=== PATIENT | male | born 1950 | race Hispanic/Latino ===

== ENCOUNTER 2018-04-05 15:33 | Emergency (ER) | payer MEDICARE, OTHER ==
[2018-04-05 17:17] LABS: AMPHET/METH SCREEN,URINE NEGATIVE (NEGATIVE); BARBITURATE SCREEN, URINE NEGATIVE (NEGATIVE); BENZODIAZEPINES SCREEN,URINE POSITIVE (NEGATIVE); CANNABINOID SCREEN,URINE NEGATIVE (NEGATIVE); COCAINE SCREEN,URINE NEGATIVE (NEGATIVE); OPIATE SCREEN,URINE NEGATIVE (NEGATIVE); PHENCYCLIDINE SCREEN,URINE NEGATIVE (NEGATIVE)
== END 2018-04-05 19:01 | disposition home or self-care (01) ==
LOC: EDH 15:33
DX: S46.819A Strain of other muscles, fascia and tendons at shoulder and upper arm level, unspecified arm, initial encounter (principal); G44.209 Tension-type headache, unspecified, not intractable; E11.9 Type 2 diabetes mellitus without complications; E78.5 Hyperlipidemia, unspecified; I10 Essential (primary) hypertension; Z91.041 Radiographic dye allergy status; V49.49XA Driver injured in collision with other motor vehicles in traffic accident, initial encounter; Y93.89 Activity, other specified; Y92.89 Other specified places as the place of occurrence of the external cause; Y99.8 Other external cause status
CPT/HCPCS: 36415; 70450; 71250; 72125; 80305; 99284; G0480

== ENCOUNTER → 2019-03-24 | Outpatient (CLI) | payer MEDICARE ==
[~2019-03-24] MED LIST: GADODIAMIDE 10 MMOL/20 ML VIAL IV ONE
== END | disposition home or self-care (01) ==
LOC: RAH 10:25
PROVIDERS: ATTEND Family Medicine
DX: M47.814 Spondylosis without myelopathy or radiculopathy, thoracic region (principal); M25.78 Osteophyte, vertebrae; M48.04 Spinal stenosis, thoracic region; N26.1 Atrophy of kidney (terminal)
CPT/HCPCS: 72146; A9579

== ENCOUNTER 2023-12-23 00:52 | Inpatient (IN) | payer MEDICARE ==
[~2023-12-23] VITALS: Ht 175.3 cm; Wt 102.1 kg
[2023-12-23 01:08] LABS: BASOPHILS # (AUTO) 0.05 K/uL (0.00-0.20); BASOPHILS % (AUTO) 0.2 % (0.0-5.0); EOSINOPHILS # (AUTO) 0.14 K/uL (0.00-0.70); EOSINOPHILS % (AUTO) 0.7 % (0.0-8.0); HEMATOCRIT 37.8 % (42-54); IMMATURE GRANULOCYTE ABSOLUTE 0.11 K/uL (0-1); LYMPHOCYTES # (AUTO) 5.8 K/uL (1.0-4.8); LYMPHOCYTES % (AUTO) 27.7 % (21.0-51.0); MEAN CORPUSCULAR HGB CONC 32.5 g/dL (32.0-36.0); MEAN CORPUSCULAR VOLUME 92.2 fL (79-99); MONOCYTES # (AUTO) 1.6 K/uL (0.1-1.0); MONOCYTES % (AUTO) 7.9 % (3.0-13.0); NEUTROPHILS # (AUTO) 13.2 K/uL (1.8-7.7); PLATELET COUNT (AUTO) 327 K/uL (130-400); RED CELL DISTRIBUTION WIDTH 14.6 % (11.0-15.5); WHITE BLOOD COUNT (AUTO) 20.9 K/uL (4.8-10.8)
[2023-12-23 01:15] LABS: CREATININE 1.4 mg/dL (0.5-1.3); POTASSIUM 3.4 mmol/L (3.5-5.1)
[2023-12-23 01:35] LABS: BAND NEUTROPHILS % (MANUAL) 1 % (0-2); LYMPHOCYTES % (MANUAL) 41 % (22-44); MONOCYTES % (MANUAL) 3 % (2-9); SEGMENTED NEUTROPHILS % 55 % (40-70); TOTAL CELLS COUNTED 100
[2023-12-23 01:37] LABS: MAN.DIFF COMMENT-IMPRESSION MANUAL DIFFERENTIAL
--- NOTE | 2023-12-23 01:45 | ERN ---
ED Note History of Present Illness Stated Complaint: LOWER ABDOMINAL PAIN WITH BRIGHT RED BLOOD IN STOO Chief Complaint: Abdominal Pain Time Seen by MD: 01:00 Dictation: This is a 73-year-old male who presented to the emergency room with complaints of bright red blood per rectum which started 2 hours ago. He also reports lower crampy abdominal pain associated with weakness and lightheadedness. He stated that due to pain he has nausea and feels like he would vomit. No history of any vomiting blood. He has had similar episode 3 years ago at which time Dr. Kamron gee evaluated him and what he describes likely with endoscopy and colonoscopy. Per patient's report he was told that there were no tumors. He is on chronic immunosuppressant therapy-prednisone and azathioprine for his renal transplant Temperature 97.3 pulse 79 respirations 18 blood pressure 156/77 with a pulse oximetry of 96% Chronic medical problems include diabetes mellitus, hypertension, initial renal transplant in the 1970s and repeat renal transplant 14 years after the 1st one Patient is not on any anticoagulant therapy. Past Medical History Past Medical History: Diabetes-Type II, Hypertension, Other Surgical History: Other Surgical History Other: R RENAL TRANSPLANT Family History: Negative Social History: Negative RN Note Reviewed/Agreed w/PFSH: Yes Review of System Dictation Constitutional: Negative for fever,chills, and weight loss Eyes: Negative for injury, pain,redness, and discharge ENT: Negative for injury,pain or swelling Cardiovascular: Negative for chest pain, palpitations, and edema Respiratory: Negative for shortness of breath, cough, and wheezing, Abdomen/GI: Positive for crampy lower abdominal pain, nausea, bright red blood per rectum Back: Negative for injury and pain : Negative for injury, bleeding and discharge MS/Extremity: Negative for injury and deformity Skin: Negative for rash, and discoloration Neuro: Negative for headache, weakness, numbness, tingling, and seizure Psych: Negative for suicide ideation, homicidal ideation, and hallucinations Initial Vital Sign VS Vital Signs Date Time Temp Pulse Resp B/P (MAP) Pulse Ox O2 Delivery O2 Flow Rate FiO2 12/23/23 00:53 97.3 79 18 156/77 98 Room Air* 0 21 Physical Exam Dictation General: awake, alert, NAD elderly chronically ill-appearing but very sharp Head/Face: Normocephalic, atraumatic Eyes: PERRL, EOMI, vision at baseline ENT: oral cavity clear, TMs clear, no signs of infection Neck: Trachea midline, supple, no nuchal rigidity Cardiovascular: RRR, normal S1/S2, No MRGs, no JVD Respiratory: CTAB, no respiratory distress, No rales or wheezes Abdomen: Soft, non-tender, non-distended, normal bowel sounds, no guarding or rebound. Skin: Warm, dry, normal turgor, no rash extensive warty lesions throughout the body MS/Extremity: Pulses equal, no cyanosis, neurovascular intact, FROM Neuro: COAx4, GCS 15, strength 5/5, CN 2-12 intact, normal cerebellar exam, n ormal gait, Psych: Normal behavior, mood, and affect normal Extremities-trace edema without any palpable cords, Homans sign is negative Results (Laboratory/Radiology) Laboratory/Radiology Laboratory Tests Test 12/23/23 00:56 White Blood Count 20.9 K/uL (4.8-10.8) H Red Blood Count 4.10 MIL/uL (4.50-6.20) L Hemoglobin 12.3 g/dL (14.0-18.0) L Hematocrit 37.8 % (42-54) L Mean Corpuscular Volume 92.2 fL (79-99) Mean Corpuscular Hemoglobin 30.0 pg (27.0-33.0) Mean Corpuscular Hemoglobin Concent 32.5 g/dL (32.0-36.0) Red Cell Distribution Width 14.6 % (11.0-15.5) Platelet Count 327 K/uL (130-400) Mean Platelet Volume 11.6 fL (7.5-10.5) H Immature Granulocyte % (Auto) 0.5 % (0-1) Neutrophils (%) (Auto) 63.0 % (40.0-77.0) Lymphocytes (%) (Auto) 27.7 % (21.0-51.0) Monocytes (%) (Auto) 7.9 % (3.0-13.0) Eosinophils (%) (Auto) 0.7 % (0.0-8.0) Basophils (%) (Auto) 0.2 % (0.0-5.0) Neutrophils # (Auto) 13.2 K/uL (1.8-7.7) H Lymphocytes # (Auto) 5.8 K/uL (1.0-4.8) H Monocytes # (Auto) 1.6 K/uL (0.1-1.0) H Eosinophils # (Auto) 0.14 K/uL (0.00-0.70) Basophils # (Auto) 0.05 K/uL (0.00-0.20) Absolute Immature Granulocyte (auto 0.11 K/uL (0-1) Segmented Neutrophils % 55 % (40-70) Band Neutrophils % 1 % (0-2) Lymphocytes % (Manual) 41 % (22-44) Monocytes % (Manual) 3 % (2-9) Nucleated Red Blood Cells 0.0 % (0.0-0.19) Differential Comment MANUAL DIFFERENTIAL White Cell Morphology Comment Platelet Morphology Comment See comments Red Blood Cell Morphology HYPOCHROM CELLS 1+ Sodium Level 138 mmol/L (136-145) Potassium Level 3.4 mmol/L (3.5-5.1) L Chloride Level 102 mmol/L (101-111) Carbon Dioxide Level 20 mmol/L (21-32) L Blood Urea Nitrogen 26 mg/dL (7-18) H Creatinine 1.4 mg/dL (0.5-1.3) H Glomerular Filtration Rate Calc 53 mL/min (>90) Random Glucose 209 mg/dL (70-105) H Total Calcium 8.7 mg/dL (8.5-10.1) Labs Reviewed?: Yes ED Course ED Course Orders Procedure Category Date Status Time Cbc With Differential LAB 12/23/23 In Process 00:55 Basic Metabolic Panel LAB 12/23/23 Complete 00:55 Type And Screen BBK 12/23/23 In Process 00:55 Edm Admit Bridge Order ADM 12/23/23 Transmitted 01:04 Admit Orders ADM 12/23/23 Transmitted 01:04 Pantoprazole 40mg Inj PHA 12/23/23 Complete (Protonix 40mg Inj 01:30 Manual Differential LAB 12/23/23 In Process 00:56 Morphine 2mg Syg PHA 12/23/23 Complete (Morphine 2mg Syg) 01:30 Current Medications Medications (Trade) Dose Ordered Sig/Mychal Route PRN Reason Start Time Stop Time Status Last Admin Dose Admin Morphine Sulfate (morPHINE 2MG SYG) 2 mg ONCE ONCE IVP 12/23/23 01:30 11/11/24 01:31 DC Pantoprazole Sodium (PROTonix 40MG INJ) 40 mg ONCE ONCE IVP 12/23/23 01:30 12/23/23 01:31 DC Vital Signs Date Time Temp Pulse Resp B/P (MAP) Pulse Ox O2 Delivery O2 Flow Rate FiO2 12/23/23 00:54 97.3 79 18 156/77 98 Room Air 0 12/23/23 00:53 97.3 79 18 156/77 98 Room Air* 0 21 We will perform diagnostic labs, advanced imaging and administer medications according to the patient's complaint. Once the results are available, will review and personally interpreted the labs to rule out any acute life- threatening emergency the trach require immediate intervention and treatment. I will then re-evaluate the patient after treatment and diagnostic exams have return to determine whether the patient requires any further testing, can safely be discharged home or need further admission to hospital for additional treatment and evaluation. Labs reviewed CBC showed a white count of 20.9 hemoglobin 12.3 platelets 327. BNP 7 is pending I recommended admission to the hospital for evaluation of the bright red bleeding per rectum and patient is agreeable. Medical Decision Making MDM MDM: Differential diagnosis: Diverticulitis, AVMs, diverticulosis, secondary mal ignancies due to chronic immunosuppressant therapy Rationale: Tests considered and ordered secondary to shared decision making i nclude: labs, ECG and radiology Previous outside records reviewed: Old ER visits. Risk of complication and/or morbidity or mortality of patient management: None Medications-Per medication reconciliation Need for hospitalization: Patient does meet criteria for hospitalization. Need for emergency major/minor surgery: No There are no social concerns with this patient. Prescription drug management Prescriptions will include symptomatic care Patient's prior external medical records from other ER visits were reviewed by me as indicated. Prior testing and results from previous visits were reviewed. Prior tests were taken into account with medical decision making and resource utilization, independent historian/historians were used to obtain complete medical history. I independently interpreted the test that were performed, results were reviewed by me and considered findings on radiology if ordered. Medical management and examination interpretation discussions were had by me with other qualified healthcare professionals as indicated for the patient's care. 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 I personally reviewed and interpreted all the diagnostic exams performed in the ER today. The patient will be admitted to the hospital for further treatment and evaluation. Disposition-admit to facility Condition-stable/guarded Course-uncertain at this time Pain status-decreased Assessment-exam unchanged Admission Certification- I certify that the patients status is appropriate and is based on my best clinical judgment and the patient's condition as documented in the medical records Referrals: KAMRON BAUER MD (PCP) LEE SALAZAR MD Dec 23, 2023 01:45
[2023-12-23] MEDS: PANTOPrazole 40 MG/VIAL IVP ONE (02:03)
[2023-12-23] MEDS: morPHINE 2 MG SYG IVP ONE (02:04)
--- NOTE | 2023-12-23 04:23 | HP ---
[facility] HISTORY AND PHYSICAL Date of Service: Dec 23, 2023 Time of Service: 03:58 PCP: Kamron Lin HISTORY OF PRESENT ILLNESS: This is a 73-year-old male,highly impaired hearing with past medical history of diabetes type 2, hypertension and obesity who presents to the ED for complaints of bright red blood per rectum which started 2 hours ago prior to ER arrival and patient also reports having crampy abdominal pain associated with nausea ,non bloody vomiting x 3 episodes , weakness and lightheadedness.Patient states he has bloody stool x 1 at home and x2 in the ER and no blood clots but it was bright red he said and he feels weak.Patient states this is the first time that happened to him.Patient states he had colonoscopy procedure before and was found that he had multiple polyps.Patient states his GI doctor is .Patient reports he has renal transplant twice and the firs one was done in 1969's in [place], [place] and the second was in s was done in [place] and his donor is his brother.Patient states he is taking immunosuppressive therapy such as prednisone and Azathioprine and he has been doing good so far he said.Patient denies taking any antiplatelet and blood thinners. Seen and examined patient in the ER awake alert and coherent continue to complai n of feeling weak. Patient denies fever chills, chest pain, palpitation and shortness of breath. Latest vital signs temperature 97.3, heart rate 100, blood pressure 110/68 saturation 98% on room air. Labs: WBC 20.9, hemoglobin 12.3, hematocrit 37.8, platelet count 327. Potassium 3.4, CO2 20, BUN 26, creatinine 1.4, GFR 53 glucose 209. While in the ER patient received morphine 2 mg IV and Protonix 40 mg IV. We will admit patient for further medical management. REVIEW OF SYSTEMS CONSTITUTIONAL: Positive feeling weak Denies fevers, chills, or night sweats. No unintentional weight loss reported. NEUROLOGICAL: Denies headache, amaurosis fugax, motor weakness, sensory deficit, vertigo/spinning sensation, gait abnormalities, or tremors. ENT: No hearing loss, otalgia, otorrhea, rhinitis, rhinorrhea, hoarseness, or sore throat. CARDIOVASCULAR: Denies any exertional angina, dyspnea on exertion, orthopnea, paroxysmal nocturnal dyspnea, palpitations, life-threatening arrhythmias, claudication. PULMONARY: Denies any shortness of breath, cough, phlegm/sputum, hemoptysis, pleuritic chest pain. SLEEP: Denies morning headaches, daytime somnolence or napping. Denies difficulty falling asleep, staying asleep, waking from sleep. Denies knowledge of snoring. GASTROINTESTINAL: Positive epigastric pain nausea vomiting and bloody stool Denies any type of dysphagia to either liquids or solids. Denies pyrosis, early satiety, abdominal pain, diarrhea, constipation.Denies coffee-ground emesis, hematemesis, GENITOURINARY: Denies frequency, urgency, nocturia, hematuria or incontinence (Storage/Irritative symptoms.) Low urinary stream, straining to void, urinary intermittency or hesitancy, splitting of the voiding stream, terminal dribbling. ENDOCRINOLOGIC: Denies polyuria, polydipsia, polyphagia or heat/cold intolerances. HEMATOLOGIC: Denies thrombophilia/previous clots, or coagulopathy/bleeding disorders. ONCOLOGIC: Denies personal history of malignancy. DERMATOLOGIC: Denies rashes or pruritus. PSYCHIATRIC: Denies any suicidal or homicidal ideation. Denies hallucinations. PAST MEDICAL HISTORY: [ Diabetes, hypertension and obesity] PAST SURGICAL HISTORY: [ Renal transplant x2, kidney removal, bilateral cataract surgery, bilateral knee replacement ] PAST SOCIAL HISTORY: [ Patient lives alone. Ex- is a caregiver for 6 hours per day 9am - 3pm p.m. ] FAMILY HISTORY: [ Noncontributory] Coded Allergies: codeine (Unverified Allergy, Unknown, RASH/HIVES, 12/23/23) PHYSICAL EXAM GENERAL APPEARANCE: The patient is awake, alert, and oriented, in no acute cardiopulmonary distress. NEUROLOGICAL: Cranial nerves II-XII grossly intact. Motor is 5/5 in bilateral upper and lower extremities proximal to distal. No sensory deficits. HEENT: Face is symmetric. Pupils are equal and reactive. Extraocular movements are intact. NECK: Supple. No JVD. No thyromegaly. No submental, submandibular, pre- /postauricular, occipital or supraclavicular lymphadenopathy. CHEST: Normal chest expansion. No Telemetry. LUNGS: Absence of any rales, rhonchi or any wheezing. CARDIOVASCULAR: Regular. S1 and S2 normal. No appreciable rubs, murmurs or gallops. ABDOMEN: Soft, nontender, and nondistended. There is no rebound, voluntary guarding, or rigidity. : Deferred. No New. EXTREMITIES: Non-edematous and not cyanotic. No clubbing. Good capillary refill. SKIN: No skin breakdown. Vital Sign (Last 24 Hours) 12/23/23 02:42 Temp 97.3 Pulse 100 Resp 18 B/P (MAP) 110/68 Pulse Ox 98 O2 Delivery Room Air* O2 Flow Rate 0 FiO2 21 LABS: Laboratory: Test 12/23/23 00:56 Range/Units White Blood Count 20.9 H 4.8-10.8 K/uL Red Blood Count 4.10 L 4.50-6.20 MIL/uL Hemoglobin 12.3 L 14.0-18.0 g/dL Hematocrit 37.8 L 42-54 % Mean Corpuscular Volume 92.2 79-99 fL Mean Corpuscular Hemoglobin 30.0 27.0-33.0 pg Mean Corpuscular Hemoglobin Concent 32.5 32.0-36.0 g/dL Red Cell Distribution Width 14.6 11.0-15.5 % Platelet Count 327 130-400 K/uL Mean Platelet Volume 11.6 H 7.5-10.5 fL Immature Granulocyte % (Auto) 0.5 0-1 % Neutrophils (%) (Auto) 63.0 40.0-77.0 % Lymphocytes (%) (Auto) 27.7 21.0-51.0 % Monocytes (%) (Auto) 7.9 3.0-13.0 % Eosinophils (%) (Auto) 0.7 0.0-8.0 % Basophils (%) (Auto) 0.2 0.0-5.0 % Neutrophils # (Auto) 13.2 H 1.8-7.7 K/uL Lymphocytes # (Auto) 5.8 H 1.0-4.8 K/uL Monocytes # (Auto) 1.6 H 0.1-1.0 K/uL Eosinophils # (Auto) 0.14 0.00-0.70 K/uL Basophils # (Auto) 0.05 0.00-0.20 K/uL Absolute Immature Granulocyte (auto 0.11 0-1 K/uL Segmented Neutrophils % 55 40-70 % Band Neutrophils % 1 0-2 % Lymphocytes % (Manual) 41 22-44 % Monocytes % (Manual) 3 2-9 % Nucleated Red Blood Cells 0.0 0.0-0.19 % Differential Comment MANUAL DIFFERENTIAL White Cell Morphology Comment Platelet Morphology Comment See comments Red Blood Cell Morphology HYPOCHROM CELLS 1+ Sodium Level 138 136-145 mmol/L Potassium Level 3.4 L 3.5-5.1 mmol/L Chloride Level 102 101-111 mmol/L Carbon Dioxide Level 20 L 21-32 mmol/L Blood Urea Nitrogen 26 H 7-18 mg/dL Creatinine 1.4 H 0.5-1.3 mg/dL Glomerular Filtration Rate Calc 53 >90 mL/min Random Glucose 209 H 70-105 mg/dL Total Calcium 8.7 8.5-10.1 mg/dL DIAGNOSTICS / RADIOLOGY: [ ] ASSESSMENT: Suspected GI bleed POA Acute leukocytosis ( patient on prednisone ) POA Long-term current use of immunosuppressive drug POA Uncontrolled Diabetes POA Hypertension POA Hypokalemia POA Acute kidney injury on stage III renal disease POA History of renal transplantation POA Obesity POA PLAN: We will admit patient in medical telemetry We will keep patient nothing by mouth We will start LR @ 100 ml / hr x 1 bag and re evaluate Will transfuse blood product to keep Hgb above 7 We will start on Protonix 40 mg IV bid for GI prophylaxis We will replace electrolytes as needed per protocol We will start on insulin sliding scale AC & HS with hypoglycemia protocol We will add prn medication for fever,pain, nausea & vomiting We will reconcile home meds once medlist available Will request Fecal occult blood x 1 Will do serial H&H Q6H and prn bleeding Will seek Gastroenterology consultation We will request labs in am Further orders to follow depending on above results Case discussed with attending physician and came up with above treatment and plan of care. ADVANCED CARE PLANNING 1. Which of the following were discussed? Hospice Care - No Therapeutic options - Yes Advance Directives - No Other discussions - 2. Discussed with who? Patient 3. Voluntary nature of this service was explained to the patient? Yes 4. Amount of time spent - __19 5. Reviewed by Physician? (if this service was performed by NPP) Yes Patient seen and examined by me. Agree with note by SKIVER WELT END SEE ADDITIONAL ORDERS PER CHART DISCUSSED WITH NURSING STAFF MARYAM JONESP Dec 23, 2023 04:23
[2023-12-23] MEDS ORDERED: ondanSETRON 4MG INJ IV PRN (04:30)
[2023-12-23] MEDS ORDERED: GLUCAGON 1MG KIT 1 MG ML IM PRN (04:30)
[2023-12-23] MEDS ORDERED: DEXTROSE 50%-WATER 50 ML DISP.SYRIN IV PRN (04:30)
[2023-12-23] MEDS ORDERED: MAGNESIUM 2GM PREMIX 50ML 50 ML IV PRN (04:30)
[2023-12-23] MEDS ORDERED: hydrALAZine 20MG/ML VIAL IV PRN (04:30)
[2023-12-23] MEDS ORDERED: PoTASSium chloRIDE 20MEQ/100ML 100 ML IV PRN (04:30)
[2023-12-23] MEDS: LACTATED RINGERS 1000ML 1,000 ML IV SCH (04:47)
[2023-12-23] MEDS: DiphenhydrAMINE HCL 50 MG/ML VIAL IM ONE (04:48)
[2023-12-23 06:31] LABS: BASOPHILS # (AUTO) 0.03 K/uL (0.00-0.20); BASOPHILS % (AUTO) 0.2 % (0.0-5.0); EOSINOPHILS # (AUTO) 0.04 K/uL (0.00-0.70); EOSINOPHILS % (AUTO) 0.3 % (0.0-8.0); HEMATOCRIT 33.6 % (42-54); LYMPHOCYTES # (AUTO) 2.6 K/uL (1.0-4.8); LYMPHOCYTES % (AUTO) 18.4 % (21.0-51.0); MEAN CORPUSCULAR HEMOGLOBIN 29.7 pg (27.0-33.0); MEAN CORPUSCULAR HGB CONC 31.8 g/dL (32.0-36.0); MEAN CORPUSCULAR VOLUME 93.3 fL (79-99); MONOCYTES # (AUTO) 1.1 K/uL (0.1-1.0); MONOCYTES % (AUTO) 7.6 % (3.0-13.0); NEUTROPHILS # (AUTO) 10.1 K/uL (1.8-7.7); NEUTROPHILS % (AUTO) 72.8 % (40.0-77.0); PLATELET COUNT (AUTO) 266 K/uL (130-400); RED CELL DISTRIBUTION WIDTH 14.6 % (11.0-15.5); WHITE BLOOD COUNT (AUTO) 13.9 K/uL (4.8-10.8)
[2023-12-23 06:48] LABS: ALBUMIN 2.8 g/dL (3.5-5.0); BILIRUBIN,TOTAL 0.6 mg/dL (0.2-1.0); CREATININE 1.3 mg/dL (0.5-1.3); MAGNESIUM 1.2 mg/dL (1.80-2.40); POTASSIUM 4.3 mmol/L (3.5-5.1); TOTAL PROTEIN, SERUM 5.9 g/dL (6.0-8.3)
[2023-12-23] MEDS: INSULIN humuLIN R 100 UNIT/ML 3ML SQ SCH (07:30)
[2023-12-23] MEDS ORDERED: PRED10TA23 PO (09:41)
[2023-12-23] MEDS ORDERED: ALPR-411 PO (09:41)
[2023-12-23] MEDS ORDERED: HYDR-4068 PO (09:41)
[2023-12-23] MEDS ORDERED: ZOLP5TAB8 PO (09:41)
[2023-12-23] MEDS ORDERED: CEPH500C2 PO (09:41)
[2023-12-23] MEDS ORDERED: POTA15TA11 PO (09:41)
[2023-12-23] MEDS ORDERED: DYAZIDE PO (09:41)
[2023-12-23] MEDS ORDERED: METF-527 PO (09:41)
[2023-12-23] MEDS ORDERED: MAGN250T10 PO (09:41)
[2023-12-23] MEDS ORDERED: AZAT75TA2 PO (09:41)
[2023-12-23] MEDS ORDERED: HYDR100T15 PO (09:41)
[2023-12-23] MEDS ORDERED: MIRT-93 PO (09:41)
[2023-12-23 09:50] VITALS: BP 124/71; PULSE 87; RESP 19; TEMP 98
[2023-12-23] MEDS: PANTOPrazole 40 MG/VIAL IVP SCH (10:17)
[2023-12-23 10:28] LABS: HEMATOCRIT 32.2 % (42-54)
[2023-12-23] MEDS ORDERED: ALPRAZolam 1 MG TAB PO PRN (11:00)
[2023-12-23 12:00] VITALS: BP 114/58; PULSE 91; RESP 20; TEMP 98.7; O2SAT 96
--- NOTE | 2023-12-23 13:40 | CONS ---
GASTROENTEROLOGY CONSULTATION NOTE Date of Consultation: Dec 23, 2023 Time of Consultation: 13:39 History of Present Illness: This is a 73-year-old male with past medical history of impaired hearing, type 2 diabetes, hypertension, obesity who presented due to hematochezia. He reported abdominal pain, nausea and vomiting. He does report a colonoscopy before by Dr. Perla. He does report a history of renal transplant twice. He is taking immunosuppressive therapy such as prednisone and azathioprine. Denies any anticoagulation or antiplatelet drugs. Hemoglobin was 12.3 now 10.3 with a platelet count of 266. WBC was 20 and now 13.9. LFTs unremarkable. No imaging has been done. Review of Systems: CONSTITUTIONAL: No malaise or change in sensation of wellbeing. ENMT: No rhinorrhea, otorrhea, sinus pain, ear ache. CARDIOVASCULAR: No angina, palpitations, orthopnea or paroxysmal dyspnea. RESPIRATORY: No SOB. GASTROINTESTINAL: No abdominal pain, nausea, vomiting, diarrhea, hematemesis, melena or change in the patient's habitual bowel movements consistency/number. GENITOURINARY: No dysuria, hematuria or change in bladder continence. MUSCULOSKELETAL: No new muscle pain or decrease in muscular strength. No new joint swelling, redness or tenderness. SKIN: No new rash. Past Medical History: PAST MEDICAL HISTORY: [ Diabetes, hypertension and obesity] PAST SURGICAL HISTORY: [ Renal transplant x2, kidney removal, bilateral cataract surgery, bilateral knee replacement ] PAST SOCIAL HISTORY: [ Patient lives alone. Ex- is a caregiver for 6 hours per day 9am - 3pm p.m. ] FAMILY HISTORY: [ Noncontributory] Coded Allergies: codeine (Unverified Allergy, Unknown, RASH/HIVES, 12/23/23) Coded Allergies: codeine (Unverified Allergy, Unknown, RASH/HIVES, 12/23/23) iodine (Unverified Allergy, Unknown, 12/23/23) Physical Exam: GEN: Awake, alert, oriented in person, time and place, and in no acute distress. HEENT: No sinus tenderness. Tympanic membranes were not examined. No rhinorrhea. Oral pharyngeal mucosa is pink, moist and within normal limits. Neck is supple with no cervical lymphadenopathy, thyromegaly or JVD. CHEST: Inspection, palpation and percussion of the chest were unremarkable. Lung auscultation revealed normal breath sounds bilaterally. CARDIAC: PMI is within normal limits. Heart sounds are regular. Normal S1, S2. No gallop or murmur. ABD: Soft, non-tender and not distended. No peritoneal signs on palpation. No organomegaly. Normal bowel sounds. EXT: No cyanosis or clubbing. No edema. SKIN: Intact. No rashes. JOINTS: No evidence of synovitis or acute arthritis. NEURO: Alert and oriented to name, place and person. Cranial nerve examination is unremarkable. No focal motor deficits. Normal speech. Gait is normal. Strength is normal. Vital Sign (Last 24 Hours) 12/23/23 12:00 Temp 98.8 Pulse 91 Resp 20 B/P (MAP) 114/58 Pulse Ox 96 O2 Delivery Room Air* O2 Flow Rate 0 FiO2 21 Laboratory: [ ] Laboratory: Test 12/23/23 11:05 12/23/23 10:19 12/23/23 06:13 12/23/23 00:56 Range/Units Whole Blood Glucose 129 H 70-110 MG/DL Hemoglobin 10.3 L 14.0-18.0 g/dL Hematocrit 32.2 L 42-54 % White Blood Count 13.9 #H 4.8-10.8 K/uL Red Blood Count 3.60 L 4.50-6.20 MIL/uL Mean Corpuscular Volume 93.3 79-99 fL Mean Corpuscular Hemoglobin 29.7 27.0-33.0 pg Mean Corpuscular Hemoglobin Concent 31.8 L 32.0-36.0 g/dL Red Cell Distribution Width 14.6 11.0-15.5 % Platelet Count 266 130-400 K/uL Mean Platelet Volume 11.7 H 7.5-10.5 fL Immature Granulocyte % (Auto) 0.7 0-1 % Neutrophils (%) (Auto) 72.8 40.0-77.0 % Lymphocytes (%) (Auto) 18.4 L 21.0-51.0 % Monocytes (%) (Auto) 7.6 3.0-13.0 % Eosinophils (%) (Auto) 0.3 0.0-8.0 % Basophils (%) (Auto) 0.2 0.0-5.0 % Neutrophils # (Auto) 10.1 H 1.8-7.7 K/uL Lymphocytes # (Auto) 2.6 1.0-4.8 K/uL Monocytes # (Auto) 1.1 H 0.1-1.0 K/uL Eosinophils # (Auto) 0.04 0.00-0.70 K/uL Basophils # (Auto) 0.03 0.00-0.20 K/uL Absolute Immature Granulocyte (auto 0.10 0-1 K/uL Nucleated Red Blood Cells 0.0 0.0-0.19 % Sodium Level 147 H 136-145 mmol/L Potassium Level 4.3 3.5-5.1 mmol/L Chloride Level 110 101-111 mmol/L Carbon Dioxide Level 29 21-32 mmol/L Blood Urea Nitrogen 27 H 7-18 mg/dL Creatinine 1.3 0.5-1.3 mg/dL Glomerular Filtration Rate Calc 58 >90 mL/min Random Glucose 119 H 70-105 mg/dL Total Calcium 8.5 8.5-10.1 mg/dL Magnesium Level 1.20 L 1.80-2.40 mg/dL Total Bilirubin 0.6 0.2-1.0 mg/dL Aspartate Amino Transf (AST/SGOT) 14 10-37 U/L Alanine Aminotransferase (ALT/SGPT) 14 12-78 U/L Alkaline Phosphatase 55 50-136 U/L Total Protein 5.9 L 6.0-8.3 g/dL Albumin 2.8 L 3.5-5.0 g/dL Procalcitonin < 0.05 L 0.05-0.5 ng/mL Segmented Neutrophils % 55 40-70 % Band Neutrophils % 1 0-2 % Lymphocytes % (Manual) 41 22-44 % Monocytes % (Manual) 3 2-9 % Differential Comment MANUAL DIFFERENTIAL White Cell Morphology Comment Platelet Morphology Comment See comments Red Blood Cell Morphology HYPOCHROM CELLS 1+ Current Medications Medications (Trade) Dose Ordered Sig/Mychal Route PRN Reason Start Time Stop Time Status Last Admin Dose Admin Alprazolam (XANax 1MG) 1 mg Q12H PRN PO ANXIETY/AGITATION 12/23/23 11:00 12/30/23 10:59 Cephalexin (Keflex 500 MG CAPS) 500 mg BID PO 12/23/23 21:00 12/23/23 10:32 DC Dextrose (D50w) 50 ml AD PRN IV HYPOGLYCEMIA PROTOCOL 12/23/23 04:30 01/22/24 04:29 Glucagon (Glucagon 1mg Kit) 1 mg AD PRN IM HYPOGLYCEMIA PROTOCOL 12/23/23 04:30 01/22/24 04:29 Home Med (Home Medication) (Azathioprine 50 MG) DAILY PO 12/24/23 09:00 01/23/24 08:59 Home Med (Home Medication) (Magnesium Oxide (Magnesi... DAILY PO 12/24/23 09:00 01/23/24 08:59 Hydralazine HCl (APRESOLine 20MG INJ) 10 mg Q6H PRN IV For:SBP above 160;DBP above 90 12/23/23 04:30 01/22/24 04:29 Hydralazine HCl ([id number] TAB) 100 mg BID PO 12/23/23 21:00 01/22/24 20:59 Insulin Human Regular (humuLIN R 100 UNIT/ML 3ML) INSULIN SLIDING SCAL... ACHS SQ 12/23/23 07:30 01/22/24 07:29 Lactated Ringer's 1,000 ml @ 100 mls/hr Q10H IV 12/23/23 04:30 01/22/24 04:29 12/23/23 04:47 100 MLS/HR Magnesium Sulfate 50 ml @ 0 mls/hr PROTOCOL PRN IV OTHER [SEE ORDER COMMENTS] 12/23/23 04:30 01/22/24 04:29 Mirtazapine (REMeron 15 MG TAB) 30 mg DAILY PO 12/24/23 09:00 01/23/24 08:59 Ondansetron HCl (zoFRAN 4MG INJ) 4 mg Q6H PRN IV NAUSEA/VOMITING 12/23/23 04:30 01/22/24 04:29 Pantoprazole Sodium (PROTonix 40MG INJ) 40 mg BID IVP 12/23/23 09:00 01/22/24 08:59 12/23/23 10:17 40 MG Potassium Chloride 100 ml @ 50 mls/hr AD PRN IV POTASSIUM PROTOCOL 12/23/23 04:30 01/22/24 04:29 Prednisone (deltaSONE/ ORASONE 10MG) 10 mg TID PO 12/23/23 14:00 01/22/24 13:59 Diagnostics / Radiology: [COPY/PASTE HERE IF NO REPORTS PLEASE DELETE SECTION] Assessment: Abdominal pain Hematochezia DM HTN Plan: CT revealing signs of acute diverticulitis, which is likely the cause of his hematochezia Plan for colonoscopy in 6 to 8 weeks outpatient Start antibiotic therapy [employer] Dec 23, 2023 13:40
[2023-12-23] MEDS: predniSONE 10 MG TABLET PO SCH (14:19)
[2023-12-23 16:00] VITALS: BP 137/63; PULSE 67; RESP 20; TEMP 98.3
--- NOTE | 2023-12-23 16:39 | PN ---
[facility] PROGRESS NOTE Date of Service: Dec 23, 2023 Time of Service: 10:30 SUBJECTIVE: This is a 73-year-old male,highly impaired hearing with past medical history of diabetes type 2, hypertension and obesity who presents to the ED for complaints of bright red blood per rectum which started 2 hours ago prior to ER arrival and patient also reports having crampy abdominal pain associated with nausea ,non bloody vomiting x 3 episodes , weakness and lightheadedness.Patient states he has bloody stool x 1 at home and x2 in the ER and no blood clots but it was bright red he said and he feels weak.Patient states this is the first time that happened to him.Patient states he had colonoscopy procedure before and was found that he had multiple polyps.Patient states his GI doctor is .Patient reports he has renal transplant twice and the firs one was done in 1969's in [place], [place] and the second was in s was done in [place] and his donor is his brother.Patient states he is taking immunosuppressive therapy such as prednisone and Azathioprine and he has been doing good so far he said.Patient denies taking any antiplatelet and blood thinners. Seen and examined patient in the ER awake alert and coherent continue to complain of feeling weak. Patient denies fever chills, chest pain, palpitation and shortness of breath. Latest vital signs temperature 97.3, heart rate 100, blood pressure 110/68 saturation 98% on room air. Labs: WBC 20.9, hemoglobin 12.3, hematocrit 37.8, platelet count 327. Potassium 3.4, CO2 20, BUN 26, creatinine 1.4, GFR 53 glucose 209. While in the ER patient received morphine 2 mg IV and Protonix 40 mg IV. We will admit patient for further medical management. 12/23/2023: Patient seen and assessed at bedside. He is saturating well on room air and continues to be hemodynamically stable. Patient states he still has some dull abdominal pain but is otherwise comfortable and feels like he has regained some of his strength. He complains of not being able to rest, started on Restoril 7.5 mg to help sleep at night. We are waiting on BM to collect FOBT. GI has been consulted and plan is to do a colonoscopy in the morning. Patient continued on clear liquid diet and restarted on home meds. Nephro consulted to follow up on history of renal transplant x2. Labs significant for hemoglobin down to 10.7 from 12.3 yesterday. Hematocrit down to 33.6 from 37.8 yesterday. We will continue to repeat Q6hrs. WBC improved to 13.9 from 20.9 yesterday. BUN is at 27, Cr at 1.3. Sodium increased from 138 to 147. Patient mentioned history of anal fistula a few years ago but did not have any blood in stool sin ce then. We will continue to monitor patient and follow GI recommendations. REVIEW OF SYSTEMS CONSTITUTIONAL: Positive feeling weak Denies fevers, chills, or night sweats. No unintentional weight loss reported. NEUROLOGICAL: Denies headache, amaurosis fugax, motor weakness, sensory deficit, vertigo/spinning sensation, gait abnormalities, or tremors. ENT: No hearing loss, otalgia, otorrhea, rhinitis, rhinorrhea, hoarseness, or sore throat. CARDIOVASCULAR: Denies any exertional angina, dyspnea on exertion, orthopnea, paroxysmal nocturnal dyspnea, palpitations, life-threatening arrhythmias, claudication. PULMONARY: Denies any shortness of breath, cough, phlegm/sputum, hemoptysis, pleuritic chest pain. SLEEP: Denies morning headaches, daytime somnolence or napping. Denies difficulty falling asleep, staying asleep, waking from sleep. Denies knowledge of snoring. GASTROINTESTINAL: Positive epigastric pain nausea vomiting and bloody stool Denies any type of dysphagia to either liquids or solids. Denies pyrosis, early satiety, abdominal pain, diarrhea, constipation.Denies coffee-ground emesis, hematemesis, GENITOURINARY: Denies frequency, urgency, nocturia, hematuria or incontinence (Storage/Irritative symptoms.) Low urinary stream, straining to void, urinary intermittency or hesitancy, splitting of the voiding stream, terminal dribbling. ENDOCRINOLOGIC: Denies polyuria, polydipsia, polyphagia or heat/cold intolerances. HEMATOLOGIC: Denies thrombophilia/previous clots, or coagulopathy/bleeding disorders. ONCOLOGIC: Denies personal history of malignancy. DERMATOLOGIC: Denies rashes or pruritus. PSYCHIATRIC: Denies any suicidal or homicidal ideation. Denies hallucinations. PHYSICAL EXAM GENERAL APPEARANCE: The patient is awake, alert, and oriented, in no acute cardiopulmonary distress. NEUROLOGICAL: Cranial nerves II-XII grossly intact. Motor is 5/5 in bilateral upper and lower extremities proximal to distal. No sensory deficits. HEENT: Face is symmetric. Pupils are equal and reactive. Extraocular movements are intact. NECK: Supple. No JVD. No thyromegaly. No submental, submandibular, pre- /postauricular, occipital or supraclavicular lymphadenopathy. CHEST: Normal chest expansion. No Telemetry. LUNGS: Absence of any rales, rhonchi or any wheezing. CARDIOVASCULAR: Regular. S1 and S2 normal. No appreciable rubs, murmurs or gallops. ABDOMEN: Soft, nontender, and nondistended. There is no rebound, voluntary guarding, or rigidity. : Deferred. No New. EXTREMITIES: Non-edematous and not cyanotic. No clubbing. Good capillary refill. SKIN: No skin breakdown. Vital Signs (last 8hr) Date Time Temp Pulse Resp B/P (MAP) Pulse Ox O2 Delivery O2 Flow Rate FiO2 12/23/23 12:00 96 Room Air* 0 21 12/23/23 12:00 98.8 91 20 114/58 96 Room Air 0.0 12/23/23 09:50 98.1 87 19 124/71 97 Room Air 0.0 LABS: Laboratory: Test 12/23/23 16:05 12/23/23 10:19 12/23/23 06:13 12/23/23 00:56 Range/Units Whole Blood Glucose 131 H 70-110 MG/DL Hemoglobin 10.3 L 14.0-18.0 g/dL Hematocrit 32.2 L 42-54 % White Blood Count 13.9 #H 4.8-10.8 K/uL Red Blood Count 3.60 L 4.50-6.20 MIL/uL Mean Corpuscular Volume 93.3 79-99 fL Mean Corpuscular Hemoglobin 29.7 27.0-33.0 pg Mean Corpuscular Hemoglobin Concent 31.8 L 32.0-36.0 g/dL Red Cell Distribution Width 14.6 11.0-15.5 % Platelet Count 266 130-400 K/uL Mean Platelet Volume 11.7 H 7.5-10.5 fL Immature Granulocyte % (Auto) 0.7 0-1 % Neutrophils (%) (Auto) 72.8 40.0-77.0 % Lymphocytes (%) (Auto) 18.4 L 21.0-51.0 % Monocytes (%) (Auto) 7.6 3.0-13.0 % Eosinophils (%) (Auto) 0.3 0.0-8.0 % Basophils (%) (Auto) 0.2 0.0-5.0 % Neutrophils # (Auto) 10.1 H 1.8-7.7 K/uL Lymphocytes # (Auto) 2.6 1.0-4.8 K/uL Monocytes # (Auto) 1.1 H 0.1-1.0 K/uL Eosinophils # (Auto) 0.04 0.00-0.70 K/uL Basophils # (Auto) 0.03 0.00-0.20 K/uL Absolute Immature Granulocyte (auto 0.10 0-1 K/uL Nucleated Red Blood Cells 0.0 0.0-0.19 % Sodium Level 147 H 136-145 mmol/L Potassium Level 4.3 3.5-5.1 mmol/L Chloride Level 110 101-111 mmol/L Carbon Dioxide Level 29 21-32 mmol/L Blood Urea Nitrogen 27 H 7-18 mg/dL Creatinine 1.3 0.5-1.3 mg/dL Glomerular Filtration Rate Calc 58 >90 mL/min Random Glucose 119 H 70-105 mg/dL Total Calcium 8.5 8.5-10.1 mg/dL Magnesium Level 1.20 L 1.80-2.40 mg/dL Total Bilirubin 0.6 0.2-1.0 mg/dL Aspartate Amino Transf (AST/SGOT) 14 10-37 U/L Alanine Aminotransferase (ALT/SGPT) 14 12-78 U/L Alkaline Phosphatase 55 50-136 U/L Total Protein 5.9 L 6.0-8.3 g/dL Albumin 2.8 L 3.5-5.0 g/dL Procalcitonin < 0.05 L 0.05-0.5 ng/mL Segmented Neutrophils % 55 40-70 % Band Neutrophils % 1 0-2 % Lymphocytes % (Manual) 41 22-44 % Monocytes % (Manual) 3 2-9 % Differential Comment MANUAL DIFFERENTIAL White Cell Morphology Comment Platelet Morphology Comment See comments Red Blood Cell Morphology HYPOCHROM CELLS 1+ Current Medications Medications (Trade) Dose Ordered Sig/Mychal Route PRN Reason Start Time Stop Time Status Last Admin Dose Admin Alprazolam (XANax 1MG) 1 mg Q12H PRN PO ANXIETY/AGITATION 12/23/23 11:00 12/30/23 10:59 Cephalexin (Keflex 500 MG CAPS) 500 mg BID PO 12/23/23 21:00 12/23/23 10:32 DC Dextrose (D50w) 50 ml AD PRN IV HYPOGLYCEMIA PROTOCOL 12/23/23 04:30 01/22/24 04:29 Glucagon (Glucagon 1mg Kit) 1 mg AD PRN IM HYPOGLYCEMIA PROTOCOL 12/23/23 04:30 01/22/24 04:29 Home Med (Home Medication) (Azathioprine 50 MG) DAILY PO 12/24/23 09:00 01/23/24 08:59 Home Med (Home Medication) (Magnesium Oxide (Magnesi... DAILY PO 12/24/23 09:00 01/23/24 08:59 Hydralazine HCl (APRESOLine 20MG INJ) 10 mg Q6H PRN IV For:SBP above 160;DBP above 90 12/23/23 04:30 01/22/24 04:29 Hydralazine HCl ([id number] TAB) 100 mg BID PO 12/23/23 21:00 01/22/24 20:59 Insulin Human Regular (humuLIN R 100 UNIT/ML 3ML) INSULIN SLIDING SCAL... ACHS SQ 12/23/23 07:30 01/22/24 07:29 Lactated Ringer's 1,000 ml @ 100 mls/hr Q10H IV 12/23/23 04:30 01/22/24 04:29 12/23/23 04:47 100 MLS/HR Magnesium Sulfate 50 ml @ 0 mls/hr PROTOCOL PRN IV OTHER [SEE ORDER COMMENTS] 12/23/23 04:30 01/22/24 04:29 Mirtazapine (REMeron 15 MG TAB) 30 mg DAILY PO 12/24/23 09:00 01/23/24 08:59 Ondansetron HCl (zoFRAN 4MG INJ) 4 mg Q6H PRN IV NAUSEA/VOMITING 12/23/23 04:30 01/22/24 04:29 Pantoprazole Sodium (PROTonix 40MG INJ) 40 mg BID IVP 12/23/23 09:00 01/22/24 08:59 12/23/23 10:17 40 MG Potassium Chloride 100 ml @ 50 mls/hr AD PRN IV POTASSIUM PROTOCOL 12/23/23 04:30 01/22/24 04:29 Prednisone (deltaSONE/ ORASONE 10MG) 10 mg TID PO 12/23/23 14:00 01/22/24 13:59 12/23/23 14:19 10 MG Temazepam (restORIL 7.5 MG CAP) 7.5 mg HS PO 12/23/23 21:00 01/22/24 20:59 DIAGNOSTICS / RADIOLOGY: [ ] ASSESSMENT: Suspected GI bleed POA Acute leukocytosis ( patient on prednisone ) POA Long-term current use of immunosuppressive drug POA Uncontrolled Diabetes POA Hypertension POA Hypokalemia POA Acute kidney injury on stage III renal disease POA History of renal transplantation POA Obesity POA PLAN: We will admit patient in medical telemetry We will keep patient on clear liquid diet We will start LR @ 100 ml / hr x 1 bag and re evaluate Will transfuse blood product to keep Hgb above 7 We will start on Protonix 40 mg IV bid for GI prophylaxis We will replace electrolytes as needed per protocol We will start on insulin sliding scale AC & HS with hypoglycemia protocol We will add prn medication for fever,pain, nausea & vomiting Home meds reconciled and continued Will request Fecal occult blood x 1 Will do serial H&H Q6H and prn bleeding Will contineu to follow Gastroenterology recommendations We will request labs in am We will follow up on colonoscopy in am Further orders to follow depending on above results Case discussed with attending physician and came up with above treatment and plan of care. ATTESTATION BY PHYSICIAN I have seen and examined the patient. I reviewed the documentation, medical decision making, and treatment plan as noted by the resident provider above. I agree with the findings and plan of care. Jose Martin Coburn MD, NEHA MD Dec 23, 2023 16:39
--- NOTE | 2023-12-23 16:53 | HMCIMG ---
CT ABDOMEN/PELVIS W/O CONTRAST REASON: ABD PAIN COMPARISON: None. FINDINGS: Lung bases are clear. There are no focal liver lesions. Kidneys are atrophic. There is a transplant kidney in the left lower quadrant. There is a 5 mm stone in the lower pole calyx, nonobstructing. There is no mass or hydronephrosis.. Spleen and pancreas appear unremarkable. The gallbladder appears normal as well. There is mild sigmoid diverticulosis. There is inflammation near the junction of the descending colon and sigmoid consistent with early or mild diverticulitis. There is no evidence of abscess or perforation. There is no obstruction. Colon appears otherwise normal. Small bowel loops appear normal as well. There is no evidence of free fluid or intraperitoneal air. There are no focal fluid collections. Aorta and retroperitoneum appear normal as do pelvic soft tissue structures. The anterior abdominal wall is intact. Osseous structures appear unremarkable. IMPRESSION: 1. Mild sigmoid diverticulosis, there are findings consistent with early or mild diverticulitis at the junction of the descending and sigmoid colon, no evidence of abscess or perforation. 2. Atrophic kidneys, there is a transplant kidney left lower quadrant in close proximity to the diverticular inflammation, there is a 5 mm nonobstructing stone in the lower pole calyx. 3. Otherwise unremarkable noncontrast CT abdomen and pelvis. CT was performed with one or more following dose reduction techniques: automated exposure control, adjustment of the mA and kv according to patient's size, or use of a iterative reconstruction technique.
[2023-12-23 17:03] LABS: HEMATOCRIT 31.1 % (42-54)
[2023-12-23 19:30] VITALS: BP 123/57; PULSE 81; RESP 17
[2023-12-23 20:00] VITALS: BP 123/60; PULSE 79; RESP 17; TEMP 100.8; O2SAT 94
[2023-12-23] MEDS: ZOSYN 3.375GM +NS 50ML IV SCH (20:08)
[2023-12-23] MEDS ORDERED: cePHALexin 500 MG CAPSULE PO SCH (21:00)
[2023-12-23] MEDS: hydrALAZine 25MG TABLET PO SCH (21:00)
[2023-12-23 22:53] LABS: HEMATOCRIT 28.9 % (42-54)
[2023-12-24 01:59] VITALS: BP 124/78; PULSE 73; RESP 18; TEMP 98.3
[2023-12-24 05:05] VITALS: BP 122/69; PULSE 85; RESP 17; TEMP 98
[2023-12-24 08:00] VITALS: BP 119/56; PULSE 75; RESP 20; TEMP 98
[2023-12-24 08:51] VITALS: O2SAT 93
[2023-12-24] MEDS: mirtAZAPine 15 MG TABLET PO SCH (09:00)
[2023-12-24] MEDS: AZATHIOPRINE 50 MG PO SCH (09:04)
[2023-12-24] MEDS: MAGNESIUM OXIDE 250 MG PO SCH (09:05)
--- NOTE | 2023-12-24 09:44 | CONS ---
REASON FOR CONSULTATION: Renal failure. REFERRING PHYSICIAN: Dr. Coburn. HISTORY OF PRESENT ILLNESS: A 73-year-old male who has diabetes mellitus and hypertension. The patient presented to the hospital and found to have hematochezia. The patient was having bright red blood per rectum. The patient has had colonoscopy in the past. The patient was seen by GI service and workup is ongoing. Laboratory values revealed an elevated BUN and creatinine and the patient is being seen in consultation for all of the above. PAST MEDICAL HISTORY: Diabetes mellitus, hypertension, obesity, history of renal transplant. The patient noted to have underlying renal dysfunction. The patient is being seen in consultation for all the above. PAST MEDICAL HISTORY: Diabetes mellitus and hypertension. PAST SURGICAL HISTORY: Renal transplant, knee surgery. SOCIAL HISTORY: She lives independently. There is no active tobacco use. FAMILY HISTORY: There is no renal disease in the family. ALLERGIES: SHE HAS GOT AN ALLERGY TO IODINE. MEDICATIONS: All noted. REVIEW OF SYSTEMS: GENERAL: The patient is feeling weak and tired. HEENT: No change in vision. No change in hearing. CARDIOVASCULAR: There is no current chest pain or palpitations. PULMONARY: There is no shortness of breath. GASTROINTESTINAL: As described above. MUSCULOSKELETAL: Complains of weakness. NEUROLOGIC: No seizures or focal deficits. PSYCHIATRIC: No history of hallucinations or psychosis. ENDOCRINE: Diabetes mellitus. No history of thyroid disease. HEME: History of anemia. PHYSICAL EXAMINATION: VITAL SIGNS: Blood pressure 119/56, pulse in the 70s. GENERAL: He is a chronically ill male, elderly, lying in bed on the medical floor. HEENT: Head is atraumatic. Pupils equal, roving to light. Oropharynx is without exudate. Nares clear. NECK: There is no JVP. There is no thyromegaly, no mass. CARDIOVASCULAR: Regular. There is no S3, S4 gallop. LUNGS: Coarse with equal thoracic movement. ABDOMEN: Soft, nondistended, nontender. EXTREMITIES: Reveal no clubbing, no cyanosis. NEUROLOGICAL: He is awake. He is alert. He is oriented. SKIN: Reveals no rash or nodules. BACK: There is no CVA tenderness, there are no back deformities. LABORATORY DATA: Sodium 147, potassium 4.3, BUN 27, creatinine 1.3. Hemoglobin 9.2, hematocrit 28. IMPRESSION: 1. Renal dysfunction. 2. History of renal transplant. 3. Gastrointestinal bleeding. 4. Electrolyte abnormalities. 5. Hypertension. PLAN: The patient is a 73-year-old male who presented with hematochezia. The patient was seen by GI service and felt to continue with conservative management. The patient does have underlying hypernatremia. We will discontinue the IV fluids as the patient is now taking an adequate diet. The patient's creatinine is quite stable. He remains on all of his immunosuppressive medications and we will follow the patient closely. We will obtain iron levels in the a.m. for completeness. Once the patient is discharged, he can follow up in the [facility]al [facility]. TID: [id number] RECEIPT: [id number]
[2023-12-24 10:11] LABS: BASOPHILS # (AUTO) 0.02 K/uL (0.00-0.20); BASOPHILS % (AUTO) 0.2 % (0.0-5.0); EOSINOPHILS # (AUTO) 0.13 K/uL (0.00-0.70); EOSINOPHILS % (AUTO) 1.2 % (0.0-8.0); HEMATOCRIT 28.8 % (42-54); IMMATURE GRANULOCYTE ABSOLUTE 0.06 K/uL (0-1); LYMPHOCYTES # (AUTO) 2.5 K/uL (1.0-4.8); LYMPHOCYTES % (AUTO) 22.7 % (21.0-51.0); MEAN CORPUSCULAR HEMOGLOBIN 30.9 pg (27.0-33.0); MEAN CORPUSCULAR VOLUME 93.8 fL (79-99); MONOCYTES % (AUTO) 8.6 % (3.0-13.0); NEUTROPHILS # (AUTO) 7.4 K/uL (1.8-7.7); NEUTROPHILS % (AUTO) 66.8 % (40.0-77.0); PLATELET COUNT (AUTO) 211 K/uL (130-400); RED BLOOD CELL COUNT(AUTO) 3.07 MIL/uL (4.50-6.20); RED CELL DISTRIBUTION WIDTH 14.6 % (11.0-15.5)
[2023-12-24 10:26] LABS: ALBUMIN 2.7 g/dL (3.5-5.0); BILIRUBIN,TOTAL 0.7 mg/dL (0.2-1.0); CREATININE 1.4 mg/dL (0.5-1.3); POTASSIUM 3.3 mmol/L (3.5-5.1); TOTAL PROTEIN, SERUM 5.7 g/dL (6.0-8.3)
--- NOTE | 2023-12-24 11:46 | DS ---
Discharge Summary Hospital Course Summary: This is a 73-year-old male,highly impaired hearing with past medical history of diabetes type 2, hypertension and obesity who presents to the ED for complaints of bright red blood per rectum which started 2 hours ago prior to ER arrival and patient also reports having crampy abdominal pain associated with nausea ,non bloody vomiting x 3 episodes , weakness and lightheadedness.Patient states he has bloody stool x 1 at home and x2 in the ER and no blood clots but it was bright red he said and he feels weak.Patient states this is the first time that happened to him.Patient states he had colonoscopy procedure before and was found that he had multiple polyps. 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 Patient states he is taking immunosuppressive therapy such as prednisone and Azathioprine and he has been doing good so far he said. Patient denies taking any antiplatelet and blood thinners. Seen and examined patient in the ER awake alert and coherent continue to co mplain of feeling weak. Patient denies fever chills, chest pain, palpitation and shortness of breath. Latest vital signs temperature 97.3, heart rate 100, blood pressure 110/68 saturation 98% on room air. Labs: WBC 20.9, hemoglobin 12.3, hematocrit 37.8, platelet count 327. Potassium 3.4, CO2 20, BUN 26, creatinine 1.4, GFR 53 glucose 209. While in the ER patient received morphine 2 mg IV and Protonix 40 mg IV. Patient admitted for further medical management. 12/23/2023: Patient seen and assessed at bedside. He is saturating well on room air and continues to be hemodynamically stable. Patient states he still has some dull abdominal pain but is otherwise comfortable and feels like he has regained some of his strength. He complains of not being able to rest, started on Restoril 7.5 mg to help sleep at night. Labs significant for hemoglobinemia, elevated Hematocrit, and leukocytosis. BUN is at 27, Cr at 1.3. Sodium increased from 138 to 147. Patient mentioned history of anal fistula a few years ago but did not have any blood in stool since then. We will continue to monitor patient and follow GI recommendations. 12/24/2023: CT abdomen/pelvis demonstrates mild sigmoid diverticulosis, findings consistent with early or mild diverticulitis at the junction of the descending and sigmoid colon with no evidence of abscess or perforation. Atrophic kidneys and 5 mm nonobstructing stone in the lower pole calyx. Patient started on Zosyn per GI, we will discharge on Augmentin. Patient advised to follow up with gastroenterology in 6-8 weeks for a colonoscopy. Also advised to follow up with nephrology outpatient. Hypnotherapist(s): Gastroenterology, nephrology. Procedure(s): PATIENT: TIMO CHANEY MR#: [id number] : 1950 SEX: M AGE: 73 LOCATION: 2CV ORDER 14 STATUS: ADM IN REPORT#: [id number] SERVICE 12 REASON: ABD PAIN ORDERING PHYSICIAN: ORLANDO CALVO PROCEDURE: ABD PEL WO - CT ABDOMEN/PELVIS W/O CONTRAST CT ABDOMEN/PELVIS W/O CONTRAST REASON: ABD PAIN COMPARISON: None. FINDINGS: Lung bases are clear. There are no focal liver lesions. Kidneys are atrophic. There is a transplant kidney in the left lower quadrant. There is a 5 mm stone in the lower pole calyx, nonobstructing. There is no mass or hydronephrosis.. Spleen and pancreas appear unremarkable. The gallbladder appears normal as well. There is mild sigmoid diverticulosis. There is inflammation near the junction of the descending colon and sigmoid consistent with early or mild diverticulitis. There is no evidence of abscess or perforation. There is no obstruction. Colon appears otherwise normal. Small bowel loops appear normal as well. There is no evidence of free fluid or intraperitoneal air. There are no focal fluid collections. Aorta and retroperitoneum appear normal as do pelvic soft tissue structures. The anterior abdominal wall is intact. Osseous structures appear unremarkable. IMPRESSION: 1. Mild sigmoid diverticulosis, there are findings consistent with early or mild diverticulitis at the junction of the descending and sigmoid colon, no evidence of abscess or perforation. 2. Atrophic kidneys, there is a transplant kidney left lower quadrant in close proximity to the diverticular inflammation, there is a 5 mm nonobstructing stone in the lower pole calyx. 3. Otherwise unremarkable noncontrast CT abdomen and pelvis. CT was performed with one or more following dose reduction techniques: automated exposure control, adjustment of the mA and kv according to patient's size, or use of a iterative reconstruction technique. DICTATED BY: MED SCHAFER MD DATE: 12/23/231647 ELECTRONICALLY SIGNED BY: MED SCHAFER MD DATE: 12/23/231652 Assessment/Plan: ASSESSMENT: Mild sigmoid diverticulosis, early or mild diverticulitis per CT abdomen/pelvis 12/23/23 Suspected GI bleed POA Acute leukocytosis ( patient on prednisone ) POA Long-term current use of immunosuppressive drug POA Uncontrolled Diabetes POA Hypertension POA Hypokalemia POA Acute kidney injury on stage III renal disease POA History of renal transplantation POA Obesity POA Discharge Instructions: Follow up with PCP in 3-5 days. Follow up with gastroenterology in 6-8 weeks for colonoscopy. Follow up with nephrology at [facility] as outpatient. Home Medications: Reported Medications Mirtazapine (Mirtazapine) 30 Mg Tablet, 30 MG PO DAILY, TAB 12/23/23 Azathioprine (Azathioprine) 75 Mg Tablet, 50 MG PO DAILY, TAB 12/23/23 Zolpidem Tartrate (Zolpidem Tartrate) 5 Mg Tablet, 10 MG PO HS, TAB 12/23/23 Triamterene/Hydrochlorothiazid (Triamterene-Hctz 37.5-25 mg Cp) 37.5 Mg-25 Mg Capsule, 1 CAP PO DAILY for 30 Days, #30 CAP 0 Refills 12/23/23 Prednisone (Prednisone) 10 Mg Tab.ds.pk, 10 MG PO TID 12/23/23 Cephalexin (Cephalexin) 500 Mg Capsule, 1 CAP PO BID for 10 Days, #20 CAP 0 Refills 12/23/23 Magnesium Oxide (Magnesium) 250 Mg Tablet, 1 TAB PO DAILY for 30 Days, #30 TAB 0 Refills 12/23/23 Alprazolam (Alprazolam) 1 Mg Tab.rapdis, 1 TAB PO [id number] PRN for AGITATION for 30 Days, #60 TAB 0 Refills 12/23/23 Potassium Citrate (Potassium Citrate ER) 15 Meq (1620 Mg) Tablet.er, 10 MEQ PO TID, TAB 12/23/23 Hydralazine HCl (Hydralazine HCl) 100 Mg Tablet, 100 MG PO BID, TAB 12/23/23 Metformin HCl (Metformin HCl ER) 1,000 Mg Tab.er.24, 1 TAB PO DAILY for 30 Days, #30 TAB 0 Refills 12/23/23 Hydrocodone/Acetaminophen (Hydrocodon-Acetaminophn 10-325) 10 Mg-325 Mg Tablet, 1 TAB PO TIDP PRN for pain for 30 Days, #90 TAB 0 Refills 12/23/23 New Medications: Amoxicillin/Potassium Clav (Augmentin Xr 1,000-62.5 Tab) 1,000 Mg-62.5 Mg Tab.er.12h 1 TAB PO BID for 7 Days, #14 TAB 0 Refills with food Continued Medications: Alprazolam (Alprazolam) 1 Mg Tab.rapdis 1 TAB PO [id number] PRN for AGITATION for 30 Days, #60 TAB 0 Refills Azathioprine (Azathioprine) 75 Mg Tablet 50 MG PO DAILY, TAB Hydralazine HCl (Hydralazine HCl) 100 Mg Tablet 100 MG PO BID, TAB Hydrocodone/Acetaminophen (Hydrocodon-Acetaminophn 10-325) 10 Mg-325 Mg Tablet 1 TAB PO TIDP PRN for pain for 30 Days, #90 TAB 0 Refills Magnesium Oxide (Magnesium) 250 Mg Tablet 1 TAB PO DAILY for 30 Days, #30 TAB 0 Refills Metformin HCl (Metformin HCl ER) 1,000 Mg Tab.er.24 1 TAB PO DAILY for 30 Days, #30 TAB 0 Refills Mirtazapine (Mirtazapine) 30 Mg Tablet 30 MG PO DAILY, TAB Potassium Citrate (Potassium Citrate ER) 15 Meq (1620 Mg) Tablet.er 10 MEQ PO TID, TAB Prednisone (Prednisone) 10 Mg Tab.ds.pk 10 MG PO TID Triamterene/Hydrochlorothiazid (Triamterene-Hctz 37.5-25 mg Cp) 37.5 Mg-25 Mg Capsule 1 CAP PO DAILY for 30 Days, #30 CAP 0 Refills Zolpidem Tartrate (Zolpidem Tartrate) 5 Mg Tablet 10 MG PO HS, TAB Discontinued Medications: Cephalexin (Cephalexin) 500 Mg Capsule 1 CAP PO BID for 10 Days, #20 CAP 0 Refills Time spent arranging discharge: 1-30 minutes ATTESTATION BY PHYSICIAN I have seen and examined the patient. I reviewed the documentation, medical decision making, and treatment plan as noted by the resident provider above. I agree with the findings and plan of care. Jose Martin Coburn MD, NEHA MD Dec 24, 2023 11:46
[2023-12-24 12:00] VITALS: BP 125/59; PULSE 73; RESP 18; TEMP 97.7
[2023-12-24 16:00] VITALS: BP 110/67; PULSE 75; RESP 18; TEMP 97.6
[2023-12-24] MEDS ORDERED: AMOX-427 PO (16:43)
--- NOTE | 2023-12-24 17:11 | PN ---
GASTROENTEROLOGY PROGRESS NOTE Date of Consultation: Dec 24, 2023 Time of Consultation: 17:11 Events / Notes: [ ] Review of Systems: CONSTITUTIONAL: No malaise or change in sensation of wellbeing. ENMT: No rhinorrhea, otorrhea, sinus pain, ear ache. CARDIOVASCULAR: No angina, palpitations, orthopnea or paroxysmal dyspnea. RESPIRATORY: No SOB. GASTROINTESTINAL: No abdominal pain, nausea, vomiting, diarrhea, hematemesis, melena or change in the patient's habitual bowel movements consistency/number. GENITOURINARY: No dysuria, hematuria or change in bladder continence. MUSCULOSKELETAL: No new muscle pain or decrease in muscular strength. No new joint swelling, redness or tenderness. SKIN: No new rash. Physical Exam: GEN: Awake, alert, oriented in person, time and place, and in no acute distress. HEENT: No sinus tenderness. Tympanic membranes were not examined. No rhinorrhea. Oral pharyngeal mucosa is pink, moist and within normal limits. Neck is supple with no cervical lymphadenopathy, thyromegaly or JVD. CHEST: Inspection, palpation and percussion of the chest were unremarkable. Lung auscultation revealed normal breath sounds bilaterally. CARDIAC: PMI is within normal limits. Heart sounds are regular. Normal S1, S2. No gallop or murmur. ABD: Soft, non-tender and not distended. No peritoneal signs on palpation. No organomegaly. Normal bowel sounds. EXT: No cyanosis or clubbing. No edema. SKIN: Intact. No rashes. JOINTS: No evidence of synovitis or acute arthritis. NEURO: Alert and oriented to name, place and person. Cranial nerve examination is unremarkable. No focal motor deficits. Normal speech. Gait is normal. Strength is normal. Vital Signs (last 8hr) Date Time Temp Pulse Resp B/P (MAP) Pulse Ox O2 Delivery O2 Flow Rate FiO2 12/24/23 16:00 97.5 75 18 110/67 94 Room Air 21 12/24/23 12:00 97.7 73 18 125/59 96 Room Air 21 Laboratory: [ ] Laboratory: Test 12/24/23 16:21 12/24/23 10:04 12/23/23 06:13 12/23/23 00:56 Range/Units Whole Blood Glucose 126 H 70-110 MG/DL White Blood Count 11.0 H 4.8-10.8 K/uL Red Blood Count 3.07 L 4.50-6.20 MIL/uL Hemoglobin 9.5 L 14.0-18.0 g/dL Hematocrit 28.8 L 42-54 % Mean Corpuscular Volume 93.8 79-99 fL Mean Corpuscular Hemoglobin 30.9 27.0-33.0 pg Mean Corpuscular Hemoglobin Concent 33.0 32.0-36.0 g/dL Red Cell Distribution Width 14.6 11.0-15.5 % Platelet Count 211 130-400 K/uL Mean Platelet Volume 11.1 H 7.5-10.5 fL Immature Granulocyte % (Auto) 0.5 0-1 % Neutrophils (%) (Auto) 66.8 40.0-77.0 % Lymphocytes (%) (Auto) 22.7 21.0-51.0 % Monocytes (%) (Auto) 8.6 3.0-13.0 % Eosinophils (%) (Auto) 1.2 0.0-8.0 % Basophils (%) (Auto) 0.2 0.0-5.0 % Neutrophils # (Auto) 7.4 1.8-7.7 K/uL Lymphocytes # (Auto) 2.5 1.0-4.8 K/uL Monocytes # (Auto) 1.0 0.1-1.0 K/uL Eosinophils # (Auto) 0.13 0.00-0.70 K/uL Basophils # (Auto) 0.02 0.00-0.20 K/uL Absolute Immature Granulocyte (auto 0.06 0-1 K/uL Nucleated Red Blood Cells 0.0 0.0-0.19 % Sodium Level 144 136-145 mmol/L Potassium Level 3.3 L 3.5-5.1 mmol/L Chloride Level 105 101-111 mmol/L Carbon Dioxide Level 28 21-32 mmol/L Blood Urea Nitrogen 24 H 7-18 mg/dL Creatinine 1.4 H 0.5-1.3 mg/dL Glomerular Filtration Rate Calc 53 >90 mL/min Random Glucose 132 H 70-105 mg/dL Total Calcium 8.0 L 8.5-10.1 mg/dL Iron Level 83 65-175 mcg/dL Total Iron Binding Capacity 224 L 250-450 mcg/dL Percent Iron Saturation 37.0 30-44 % Total Bilirubin 0.7 0.2-1.0 mg/dL Aspartate Amino Transf (AST/SGOT) 12 10-37 U/L Alanine Aminotransferase (ALT/SGPT) 15 12-78 U/L Alkaline Phosphatase 51 50-136 U/L Total Protein 5.7 L 6.0-8.3 g/dL Albumin 2.7 L 3.5-5.0 g/dL Magnesium Level 1.20 L 1.80-2.40 mg/dL Procalcitonin < 0.05 L 0.05-0.5 ng/mL Segmented Neutrophils % 55 40-70 % Band Neutrophils % 1 0-2 % Lymphocytes % (Manual) 41 22-44 % Monocytes % (Manual) 3 2-9 % Differential Comment MANUAL DIFFERENTIAL White Cell Morphology Comment Platelet Morphology Comment See comments Red Blood Cell Morphology HYPOCHROM CELLS 1+ Current Medications Medications (Trade) Dose Ordered Sig/Mychal Route PRN Reason Start Time Stop Time Status Last Admin Dose Admin Alprazolam (XANax 1MG) 1 mg Q12H PRN PO ANXIETY/AGITATION 12/23/23 11:00 12/30/23 10:59 Cephalexin (Keflex 500 MG CAPS) 500 mg BID PO 12/23/23 21:00 12/23/23 10:32 DC Dextrose (D50w) 50 ml AD PRN IV HYPOGLYCEMIA PROTOCOL 12/23/23 04:30 01/22/24 04:29 Glucagon (Glucagon 1mg Kit) 1 mg AD PRN IM HYPOGLYCEMIA PROTOCOL 12/23/23 04:30 01/22/24 04:29 Home Med (Home Medication) (Azathioprine 50 MG) DAILY PO 12/24/23 09:00 01/23/24 08:59 12/24/23 09:04 1 EACH Home Med (Home Medication) (Magnesium Oxide (Magnesi... DAILY PO 12/24/23 09:00 01/23/24 08:59 12/24/23 09:05 1 EACH Hydralazine HCl (APRESOLine 20MG INJ) 10 mg Q6H PRN IV For:SBP above 160;DBP above 90 12/23/23 04:30 01/22/24 04:29 Hydralazine HCl ([id number] TAB) 100 mg BID PO 12/23/23 21:00 01/22/24 20:59 Insulin Human Regular (humuLIN R 100 UNIT/ML 3ML) INSULIN SLIDING SCAL... ACHS SQ 12/23/23 07:30 01/22/24 07:29 Lactated Ringer's 1,000 ml @ 100 mls/hr Q10H IV 12/23/23 04:30 12/24/23 09:35 DC 12/23/23 04:47 100 MLS/HR Magnesium Sulfate 50 ml @ 0 mls/hr PROTOCOL PRN IV OTHER [SEE ORDER COMMENTS] 12/23/23 04:30 01/22/24 04:29 Mirtazapine (REMeron 15 MG TAB) 30 mg DAILY PO 12/24/23 09:00 01/23/24 08:59 Ondansetron HCl (zoFRAN 4MG INJ) 4 mg Q6H PRN IV NAUSEA/VOMITING 12/23/23 04:30 01/22/24 04:29 Pantoprazole Sodium (PROTonix 40MG INJ) 40 mg BID IVP 12/23/23 09:00 01/22/24 08:59 12/24/23 08:51 40 MG Piperacillin Sod/ Tazobactam Sod (Zosyn 3.375gm+NS 50ml) 3.375 gm Q8H IV 12/23/23 19:00 01/02/24 18:59 12/24/23 03:33 3.375 GM Potassium Chloride 100 ml @ 50 mls/hr AD PRN IV POTASSIUM PROTOCOL 12/23/23 04:30 01/22/24 04:29 Prednisone (deltaSONE/ ORASONE 10MG) 10 mg TID PO 12/23/23 14:00 01/22/24 13:59 12/24/23 08:51 10 MG Temazepam (restORIL 7.5 MG CAP) 7.5 mg HS PO 12/23/23 21:00 01/22/24 20:59 Diagnostics / Radiology: [COPY/PASTE HERE IF NO REPORTS PLEASE DELETE SECTION] Assessment: Abdominal pain Hematochezia DM HTN Plan: CT revealing signs of acute diverticulitis, which is likely the cause of his hematochezia Plan for colonoscopy in 6 to 8 weeks outpatient Start antibiotic therapy ORLANDO CALVO [employer] Dec 24, 2023 17:11
== END 2023-12-24 18:10 | disposition home or self-care (01) | DRG 378 ==
LOC: EDH 00:52 → EDHIP 02:44 → 2CV 08:47 → 3BH 23:49
PROVIDERS: ADMIT Internal Medicine Sleep Medicine; ATTEND Internal Medicine Sleep Medicine
DX: K57.33 Diverticulitis of large intestine without perforation or abscess with bleeding (principal); D84.821 Immunodeficiency due to drugs; N17.9 Acute kidney failure, unspecified; Z94.0 Kidney transplant status; Z96.653 Presence of artificial knee joint, bilateral; E87.6 Hypokalemia; E66.9 Obesity, unspecified; I10 Essential (primary) hypertension; Z79.60 Long term (current) use of unspecified immunomodulators and immunosuppressants; Z98.42 Cataract extraction status, left eye; Z98.41 Cataract extraction status, right eye; Z88.5 Allergy status to narcotic agent; Z68.33 Body mass index [BMI] 33.0-33.9, adult
CPT/HCPCS: 36415; 74176; 80048; 80053; 82948; 83540; 83550; 83735; 84145; 85014; 85018; 85025; 86850; 86900; 86901; 96372; 96375; 96376; G0378; J1200; J2270; J2470; J2543; J7120; J7512